=== PATIENT | male | born 1990 | race Caucasian/White ===

== ENCOUNTER 2018-06-22 19:59 | Emergency (ER) | payer MEDICAID ==
[2018-06-22 23:20] LABS: URINE BLOOD (Dip) POC Negative (NEGATIVE); URINE GLUCOSE (Dip) POC Negative (NEGATIVE); URINE KETONES (Dip) POC Negative (NEGATIVE); URINE LEUKOCYTE EST (Dip) POC Trace (NEGATIVE); URINE NITRITE (Dip) POC Negative (NEGATIVE); URINE TOTAL PROTEIN POC Trace (NEGATIVE)
[2018-06-22] MEDS: AZITHROMYCIN 250 MG TAB PO (23:28)
[2018-06-22] MEDS: CEFTRIAXONE 250 MG INJ IM (23:29)
== END 2018-06-23 00:40 | disposition home or self-care (01) ==
LOC: FTE 06-23 00:40
DX: R36.9 Urethral discharge, unspecified (principal)
CPT/HCPCS: 81003; 87110; 87591; 96372; 99284-25